=== PATIENT | female | born 1995 | race Two or more races ===

== ENCOUNTER 2018-03-21 18:50 | Emergency (ER) | payer OTHER ==
[~2018-03-21] VITALS: Ht 157.5 cm; Wt 49.9 kg
[2018-03-21 19:18] LABS: *URINE HCG, QUAL NEGATIVE (NEGATIVE)
[2018-03-21 19:30] VITALS: BP 107/71
--- NOTE | 2018-03-21 19:30 | NUR ---
Patient discharged to home in stable conditon. Written and verbal after care instructions given. Patient verbalizes understanding of instructions.
== END 2018-03-21 19:32 | disposition home or self-care (01) ==
LOC: ER 18:53
DX: R21 Rash and other nonspecific skin eruption (principal)
CPT/HCPCS: 84703; A4663